=== PATIENT | female | born 1930 | race Caucasian/White ===

== ENCOUNTER 2017-08-16 10:32 | Inpatient (IN) | payer MEDICARE, OTHER ==
[~2017-08-16] VITALS: Ht 167.6 cm; Wt 99.3 kg
[~2017-08-16 10:32] MED LIST: ALLO100T30 PO; AMLO10TA2 PO; AZIT250T PO; CEFD300C37 PO; ESCI5TAB PO; FURO40TA6 PO; ISOS10TA6 PO; LEVO100T5 PO; LOVA20TA2 PO; OMEP-110 PO; POTA25TA4 PO; RIVA20TA PO; SOTA80TA PO
[2017-08-16] MEDS ORDERED: MORPHINE SULFATE 4 MG/ML, 1ML ONE (11:17)
[2017-08-16] MEDS ORDERED: METOCLOPRAMIDE 5 MG/ML, 2ML ONE (11:17)
[2017-08-16] MEDS ORDERED: SODIUM CHLORIDE FLUSH 10ML SYR IVF ONE (11:30)
[2017-08-16] MEDS ORDERED: METOCLOPRAMIDE 5 MG/ML, 2ML IVPush ONE (11:30)
[2017-08-16] MEDS ORDERED: MORPHINE SULFATE 4 MG/ML, 1ML IVPush PRN (11:30)
[2017-08-16] MEDS ORDERED: SODIUM CHLORIDE 0.9% 1,000ML IVBOLUS ONE (11:30)
[2017-08-16 11:52] LABS: MEAN CORPUSCULAR HEMOGLOBIN 27.6 pg (27.0-34.8); MEAN CORPUSCULAR HGB CONC 32.1 g/dL (32.4-35.8); MEAN CORPUSCULAR VOLUME 86.1 fL (80-100); MEAN PLATELET VOLUME 8.7 fL (7.4-10.4); PLATELET COUNT 237 x10^3/uL (130-400); RED BLOOD COUNT 4.21 x10^6/uL (3.82-5.3)
[2017-08-16 12:00] LABS: ALBUMIN 3.6 g/dL (3.4-5.0); ANION GAP 6 mmol/L (5-15); CALCIUM 9.1 mg/dL (8.5-10.1); CHLORIDE 111 mmol/L (98-107)
[2017-08-16 12:03] LABS: ALANINE AMINOTRANSFERASE 66 U/L (12-78); ALKALINE PHOSPHATASE 116 U/L (45-117); BILIRUBIN,TOTAL 1.5 mg/dL (0.2-1.0); CREATININE 1.11 mg/dL (0.55-1.02); TOTAL PROTEIN 7.1 g/dL (6.4-8.2)
[2017-08-16 12:06] LABS: MD YES
[2017-08-16 12:07] LABS: BAND#(MANUAL) 0.17 x10^3/uL; BANDS%(MANUAL) 1 % (0-7); LYMPHS% (MANUAL) 9 % (22-44); MONOS% (MANUAL) 6 % (2-9); SEG#(MANUAL) 14.03 x10^3/uL (1.8-6.8); SEGS% (MANUAL) 84 % (42-75)
[2017-08-16 12:08] LABS: <PLATELET ESTIMATE> ADEQUATE; <PLT MORPHOLOGY> NORMAL PLT MORPH; <RBC MORPHOLOGY> NORMAL
[2017-08-16] MEDS ORDERED: OMNIPAQUE 350 MG/ML, 100ML BOTTLE ONE (12:44)
[2017-08-16] MEDS ORDERED: morphine SULFATE 10 MG/ML, 1ML IVPush PRN (14:00)
[2017-08-16] MEDS ORDERED: ONDANSETRON 2MG/ML, 2ML IVPush PRN (14:00)
[2017-08-16] MEDS ORDERED: hydrALAzine 20 MG/ML, 1ML IVPush PRN (14:00)
[2017-08-16] MEDS ORDERED: POLYETHYLENE GLYCOL 17 GM PACKET PO PRN (14:00)
[2017-08-16] MEDS ORDERED: BISACODYL 10 MG SUPP PR PRN (14:00)
[2017-08-16] MEDS ORDERED: DOCUSATE 100 MG CAPSULE PO PRN (14:00)
[2017-08-16 16:17] VITALS: BP 129/67
[2017-08-16] MEDS: DOXYCYCLINE 100 MG in DEXTROSE 5% 250 ML IV SCH (16:42)
[2017-08-16] MEDS: CEFTRIAXONE PMX 1GM/50ML 50 ML IV SCH (17:51)
[2017-08-16 18:44] VITALS: BP 124/64
[2017-08-16] MEDS: POTASSIUM CHLORIDE 20 MEQ in LACTATED RINGERS 1,000 ML IV SCH (20:55)
[2017-08-16] MEDS ORDERED: K-LYTE 25 MEQ TABLET.EFF PO SCH (21:00)
[2017-08-16] MEDS ORDERED: RIVAROXABAN 20 MG TABLET PO SCH (21:00)
[2017-08-16] MEDS ORDERED: LOVASTATIN 20 MG TABLET PO SCH (21:00)
[2017-08-16] MEDS ORDERED: SOTALOL 80MG TABLET PO SCH (21:00)
[2017-08-16 21:05] VITALS: BP 129/65
[2017-08-16 21:22] LABS: MICROSCOPIC NOT IND
[2017-08-16 21:28] LABS: CULTURE INDICATED? NO
[2017-08-16] MEDS: METOPROLOL TARTRATE 25 MG TABLET PO SCH (21:52)
[2017-08-17 01:25] VITALS: BP 111/59
[2017-08-17] MEDS: DOXYCYCLINE 100 MG in DEXTROSE 5% 250 ML IV SCH ×2 (04:52→17:58)
[2017-08-17 05:29] LABS: CHLORIDE 110 mmol/L (98-107)
[2017-08-17 05:30] LABS: BASOPHILS # (AUTO) 0.01 x10^3/uL (0-0.1); BASOPHILS % (AUTO) 0 % (0-1); EOSINOPHILS # (AUTO) 0.03 x10^3/uL (0-0.4); EOSINOPHILS % (AUTO) 0 % (1-7); LYMPHOCYTES # (AUTO) 1.55 x10^3/uL (1-3.4); LYMPHOCYTES % (AUTO) 13 % (22-44); MD NO; MEAN CORPUSCULAR HEMOGLOBIN 27.6 pg (27.0-34.8); MEAN CORPUSCULAR HGB CONC 31.6 g/dL (32.4-35.8); MEAN CORPUSCULAR VOLUME 87.3 fL (80-100); MONOCYTES % (AUTO) 9 % (2-9); NEUTROPHILS # (AUTO) 9.45 x10^3/uL (1.8-6.8); NEUTROPHILS % (AUTO) 78 % (42-75); PLATELET COUNT 216 x10^3/uL (130-400); RED BLOOD COUNT 4.32 x10^6/uL (3.82-5.3); RED CELL DISTRIBUTION WIDTH 15.7 % (9.6-15.2)
[2017-08-17 05:46] LABS: ALANINE AMINOTRANSFERASE 167 U/L (12-78); ALBUMIN 3.2 g/dL (3.4-5.0); ALKALINE PHOSPHATASE 142 U/L (45-117); ANION GAP 5 mmol/L (5-15); BILIRUBIN,TOTAL 4.9 mg/dL (0.2-1.0); CALCIUM 8.8 mg/dL (8.5-10.1); CHOL/HDL RATIO 1.9; CHOLESTEROL, TOTAL 97 mg/dL (140-239); HDL CHOL % 53 % (28-40); HDL CHOLESTEROL (DIRECT) 51 mg/dL (40-60); LDL CHOLESTEROL,CALCULATED 30 mg/dL (54-169); LDL/HDL RATIO 0.6 (0.5-3.0); TOTAL PROTEIN 6.8 g/dL (6.4-8.2); TRIGLYCERIDES 79 mg/dL (50-200); VLDL CHOLESTEROL 16 mg/dL (0-25)
[2017-08-17 06:04] VITALS: BP 129/58
[2017-08-17] MEDS ORDERED: PARO10TA56 PO (07:54)
[2017-08-17] MEDS ORDERED: PSYL3.4P5 PO (07:54)
[2017-08-17] MEDS ORDERED: POTA10CA PO (07:54)
[2017-08-17] MEDS ORDERED: APIX5TAB PO (07:54)
[2017-08-17] MEDS ORDERED: CALC-116 PO (07:54)
[2017-08-17] MEDS ORDERED: METO25TA35 PO (07:54)
[2017-08-17] MEDS ORDERED: DOFE500C PO (07:54)
[2017-08-17] MEDS ORDERED: ISOS20TA3 PO (07:54)
[2017-08-17] MEDS ORDERED: AMLO-284 PO (07:54)
[2017-08-17] MEDS ORDERED: MAGN500T PO (07:54)
[2017-08-17] MEDS ORDERED: ALLO100T30 PO (07:54)
[2017-08-17] MEDS ORDERED: ASCO500T12 PO (07:54)
[2017-08-17] MEDS ORDERED: LOVA40TA2 PO (07:54)
[2017-08-17 07:57] VITALS: BP 136/63
[2017-08-17] MEDS: LEVOTHYROXINE 100 MCG TABLET PO SCH (08:38)
[2017-08-17] MEDS: FUROSEMIDE 40 MG TABLET PO SCH (08:39)
[2017-08-17] MEDS: ALLOPURINOL 100 MG TABLET PO SCH (08:39)
[2017-08-17] MEDS: METOPROLOL TARTRATE 25 MG TABLET PO SCH ×2 (08:43→21:19)
[2017-08-17] MEDS ORDERED: AMLODIPINE 5 MG TABLET PO SCH (09:00)
[2017-08-17] MEDS ORDERED: CITALOPRAM 10 MG TABLET PO SCH (09:00)
[2017-08-17] MEDS ORDERED: ISOSORBIDE MONONITRATE 20 MG TABLET PO SCH (09:00)
[2017-08-17] MEDS: AMLODIPINE 5 MG TABLET PO SCH ×2 (09:30→21:20)
[2017-08-17] MEDS ORDERED: DOFETILIDE PO SCH (09:30)
[2017-08-17] MEDS: ISOSORBIDE MONONITRATE 20 MG TABLET PO SCH ×2 (09:30→21:19)
[2017-08-17 09:49] LABS: ALANINE AMINOTRANSFERASE 158 U/L (12-78); ANION GAP 6 mmol/L (5-15); CHLORIDE 110 mmol/L (98-107); CREATININE 0.97 mg/dL (0.55-1.02)
[2017-08-17 09:51] LABS: ALKALINE PHOSPHATASE 141 U/L (45-117); BILIRUBIN,TOTAL 5.2 mg/dL (0.2-1.0); TOTAL PROTEIN 6.4 g/dL (6.4-8.2)
[2017-08-17] MEDS ORDERED: [UNRECOGNIZED DRUG - REMARK] MC SCH (10:00)
[2017-08-17] MEDS: POTASSIUM CHLORIDE 20 MEQ in LACTATED RINGERS 1,000 ML IV SCH ×2 (10:26→23:23)
[2017-08-17] MEDS: POTASSIUM CHLORIDE 10 MEQ TABLET.ER PO SCH ×2 (10:26→21:19)
[2017-08-17] MEDS: APIXABAN 5 MG TABLET PO SCH ×2 (10:26→21:20)
[2017-08-17] MEDS: PAROXETINE 10 MG TABLET PO SCH (10:26)
[2017-08-17 13:02] LABS: BILIRUBIN, DIRECT 2.7 mg/dL (0.1-0.2)
[2017-08-17 13:06] LABS: BILIRUBIN,INDIRECT 2.5 mg/dL (0.0-2.0); BILIRUBIN,TOTAL 5.2 mg/dL (0.2-1.0)
[2017-08-17 16:00] VITALS: BP 139/81
[2017-08-17] MEDS: CEFTRIAXONE PMX 1GM/50ML 50 ML IV SCH (19:07)
[2017-08-17 19:44] VITALS: BP 141/75
[2017-08-17] MEDS ORDERED: VALSARTAN 160 MG TABLET PO SCH (21:00)
[2017-08-17] MEDS: DOFETILIDE HOMEMEDPO SCH (21:20)
[2017-08-18 02:30] VITALS: BP 137/73
[2017-08-18 04:43] LABS: BASOPHILS # (AUTO) 0.06 x10^3/uL (0-0.1); BASOPHILS % (AUTO) 1 % (0-1); EOSINOPHILS # (AUTO) 0.13 x10^3/uL (0-0.4); EOSINOPHILS % (AUTO) 2 % (1-7); LYMPHOCYTES # (AUTO) 1.37 x10^3/uL (1-3.4); LYMPHOCYTES % (AUTO) 15 % (22-44); MD NO; MEAN CORPUSCULAR HEMOGLOBIN 28.1 pg (27.0-34.8); MEAN CORPUSCULAR HGB CONC 32.5 g/dL (32.4-35.8); MEAN CORPUSCULAR VOLUME 86.3 fL (80-100); MEAN PLATELET VOLUME 8.7 fL (7.4-10.4); MONOCYTES # (AUTO) 1.07 x10^3/uL (0.2-0.8); MONOCYTES % (AUTO) 12 % (2-9); NEUTROPHILS # (AUTO) 6.23 x10^3/uL (1.8-6.8); NEUTROPHILS % (AUTO) 70 % (42-75); PLATELET COUNT 190 x10^3/uL (130-400); RED BLOOD COUNT 3.81 x10^6/uL (3.82-5.3); RED CELL DISTRIBUTION WIDTH 16.2 % (9.6-15.2)
[2017-08-18 04:51] LABS: ALANINE AMINOTRANSFERASE 115 U/L (12-78); ALBUMIN 2.8 g/dL (3.4-5.0); ANION GAP 4 mmol/L (5-15); CALCIUM 8.8 mg/dL (8.5-10.1); CHLORIDE 110 mmol/L (98-107); CREATININE 1.03 mg/dL (0.55-1.02)
[2017-08-18 04:53] LABS: ALKALINE PHOSPHATASE 130 U/L (45-117); BILIRUBIN,TOTAL 4.2 mg/dL (0.2-1.0); TOTAL PROTEIN 6.2 g/dL (6.4-8.2)
[2017-08-18] MEDS: DOXYCYCLINE 100 MG in DEXTROSE 5% 250 ML IV SCH ×2 (05:05→16:33)
[2017-08-18 07:10] VITALS: BP 142/81
[2017-08-18] MEDS: PSYLLIUM PACKET PO SCH (09:18)
[2017-08-18] MEDS: DOFETILIDE HOMEMEDPO SCH ×3 (09:18→22:31)
[2017-08-18] MEDS: MAGNESIUM OXIDE 400 MG TABLET PO SCH (09:26)
[2017-08-18] MEDS: ASCORBIC ACID 500 MG TABLET PO SCH (09:26)
[2017-08-18] MEDS: CALCIUM/VITAMIN D3 250-125 TABLET PO SCH (09:26)
[2017-08-18] MEDS: LEVOTHYROXINE 100 MCG TABLET PO SCH (09:31)
[2017-08-18] MEDS: ISOSORBIDE MONONITRATE 20 MG TABLET PO SCH ×2 (09:31→22:26)
[2017-08-18] MEDS: POTASSIUM CHLORIDE 10 MEQ TABLET.ER PO SCH ×2 (09:31→22:26)
[2017-08-18] MEDS: ALLOPURINOL 100 MG TABLET PO SCH (09:32)
[2017-08-18] MEDS: METOPROLOL TARTRATE 25 MG TABLET PO SCH ×2 (09:32→22:27)
[2017-08-18] MEDS: FUROSEMIDE 40 MG TABLET PO SCH (09:32)
[2017-08-18] MEDS: PAROXETINE 10 MG TABLET PO SCH (09:32)
[2017-08-18] MEDS: POTASSIUM CHLORIDE 20 MEQ in LACTATED RINGERS 1,000 ML IV SCH (12:13)
[2017-08-18 13:53] VITALS: BP 128/82
[2017-08-18] MEDS: CEFTRIAXONE PMX 1GM/50ML 50 ML IV SCH (17:42)
[2017-08-18 20:00] VITALS: BP 149/79
[2017-08-18 22:14] VITALS: BP 146/87
[2017-08-18] MEDS: POTASSIUM CHLORIDE IV SCH (22:27)
[2017-08-18] MEDS: LACTATED RINGERS IV SCH (22:27)
[2017-08-18] MEDS: AMLODIPINE 5 MG TABLET PO SCH (22:27)
[2017-08-18] MEDS: VALSARTAN 160 MG TABLET PO SCH (22:28)
[2017-08-19 01:50] VITALS: BP 141/71
[2017-08-19] MEDS: POTASSIUM CHLORIDE IV SCH ×3 (03:17→22:38)
[2017-08-19] MEDS: LACTATED RINGERS IV SCH ×3 (03:17→22:38)
[2017-08-19] MEDS: DOXYCYCLINE 100 MG in DEXTROSE 5% 250 ML IV SCH ×2 (04:42→17:26)
[2017-08-19 04:55] LABS: BASOPHILS # (AUTO) 0.05 x10^3/uL (0-0.1); BASOPHILS % (AUTO) 1 % (0-1); EOSINOPHILS # (AUTO) 0.22 x10^3/uL (0-0.4); EOSINOPHILS % (AUTO) 2 % (1-7); LYMPHOCYTES # (AUTO) 1.48 x10^3/uL (1-3.4); LYMPHOCYTES % (AUTO) 16 % (22-44); MD NO; MEAN CORPUSCULAR HEMOGLOBIN 28.6 pg (27.0-34.8); MEAN CORPUSCULAR HGB CONC 32.8 g/dL (32.4-35.8); MEAN PLATELET VOLUME 8.8 fL (7.4-10.4); MONOCYTES # (AUTO) 1.14 x10^3/uL (0.2-0.8); MONOCYTES % (AUTO) 12 % (2-9); NEUTROPHILS % (AUTO) 69 % (42-75); PLATELET COUNT 199 x10^3/uL (130-400); RED BLOOD COUNT 3.99 x10^6/uL (3.82-5.3); RED CELL DISTRIBUTION WIDTH 15.6 % (9.6-15.2)
[2017-08-19 05:08] LABS: ALBUMIN 2.9 g/dL (3.4-5.0); ANION GAP 8 mmol/L (5-15); CALCIUM 9.4 mg/dL (8.5-10.1); CHLORIDE 110 mmol/L (98-107)
[2017-08-19 05:13] LABS: ALANINE AMINOTRANSFERASE 88 U/L (12-78); ALKALINE PHOSPHATASE 135 U/L (45-117); BILIRUBIN,TOTAL 2.7 mg/dL (0.2-1.0); CREATININE 0.89 mg/dL (0.55-1.02); TOTAL PROTEIN 6.8 g/dL (6.4-8.2)
[2017-08-19] MEDS: LEVOTHYROXINE 100 MCG TABLET PO SCH (05:56)
[2017-08-19 08:00] VITALS: BP 138/87
[2017-08-19] MEDS: METOPROLOL TARTRATE 25 MG TABLET PO SCH ×2 (08:48→20:00)
[2017-08-19] MEDS: ISOSORBIDE MONONITRATE 20 MG TABLET PO SCH ×2 (09:00→19:59)
[2017-08-19] MEDS: CALCIUM/VITAMIN D3 250-125 TABLET PO SCH (09:00)
[2017-08-19] MEDS: PAROXETINE 10 MG TABLET PO SCH (09:00)
[2017-08-19] MEDS: DOFETILIDE HOMEMEDPO SCH ×2 (09:00→20:04)
[2017-08-19] MEDS: ASCORBIC ACID 500 MG TABLET PO SCH (09:00)
[2017-08-19] MEDS: POTASSIUM CHLORIDE 10 MEQ TABLET.ER PO SCH ×2 (09:00→20:04)
[2017-08-19] MEDS: FUROSEMIDE 40 MG TABLET PO SCH (09:00)
[2017-08-19] MEDS: MAGNESIUM OXIDE 400 MG TABLET PO SCH (09:00)
[2017-08-19] MEDS: ALLOPURINOL 100 MG TABLET PO SCH (09:00)
[2017-08-19] MEDS: PSYLLIUM PACKET PO SCH (09:00)
[2017-08-19] MEDS ORDERED: FENTANYL PF 100 MCG/2ML ONE ×2 (11:47→11:54)
[2017-08-19] MEDS ORDERED: SUCCINYLCHOLINE 20 MG/ML, 10ML ONE (11:48)
[2017-08-19] MEDS ORDERED: PROPOFOL 10 MG/ML, 20ML ONE (11:48)
[2017-08-19] MEDS ORDERED: PHENYLEPHRINE 10 MG/ML ONE (11:48)
[2017-08-19] MEDS ORDERED: DEXAMETHASONE 4 MG/ML, 1ML ONE (12:14)
[2017-08-19] MEDS ORDERED: ONDANSETRON 2MG/ML, 2ML ONE (12:14)
[2017-08-19] MEDS ORDERED: FENTANYL PF 100 MCG/2ML IV PRN (12:30)
[2017-08-19] MEDS ORDERED: PROMETHAZINE 25 MG/ML, 1ML IV PRN (12:30)
[2017-08-19] MEDS ORDERED: morphine SULFATE 10 MG/ML, 1ML IV PRN (12:30)
[2017-08-19] MEDS ORDERED: OMNIPAQUE 350 MG/ML, 50 ML BOTTLE ONE (13:07)
[2017-08-19 13:26] VITALS: BP 141/78
[2017-08-19] MEDS: CEFTRIAXONE PMX 1GM/50ML 50 ML IV SCH (18:39)
[2017-08-19 19:03] VITALS: BP 146/75
[2017-08-19 20:00] VITALS: BP 128/87
[2017-08-19] MEDS: AMLODIPINE 5 MG TABLET PO SCH (20:00)
[2017-08-19] MEDS: VALSARTAN 160 MG TABLET PO SCH (20:00)
[2017-08-19] MEDS ORDERED: AMLODIPINE 5 MG TABLET PO SCH (21:00)
[2017-08-20 03:39] VITALS: BP 152/96
[2017-08-20 04:17] VITALS: BP 143/91
[2017-08-20 04:59] LABS: BASOPHILS # (AUTO) 0.04 x10^3/uL (0-0.1); BASOPHILS % (AUTO) 0 % (0-1); EOSINOPHILS # (AUTO) 0.13 x10^3/uL (0-0.4); EOSINOPHILS % (AUTO) 2 % (1-7); LYMPHOCYTES # (AUTO) 1.31 x10^3/uL (1-3.4); LYMPHOCYTES % (AUTO) 17 % (22-44); MD NO; MEAN CORPUSCULAR VOLUME 87.5 fL (80-100); MEAN PLATELET VOLUME 9.1 fL (7.4-10.4); MONOCYTES # (AUTO) 0.92 x10^3/uL (0.2-0.8); MONOCYTES % (AUTO) 12 % (2-9); NEUTROPHILS # (AUTO) 5.54 x10^3/uL (1.8-6.8); NEUTROPHILS % (AUTO) 70 % (42-75); PLATELET COUNT 213 x10^3/uL (130-400); RED BLOOD COUNT 3.84 x10^6/uL (3.82-5.3); RED CELL DISTRIBUTION WIDTH 15.8 % (9.6-15.2)
[2017-08-20 05:09] LABS: ALBUMIN 2.8 g/dL (3.4-5.0); ANION GAP 6 mmol/L (5-15); CALCIUM 9.1 mg/dL (8.5-10.1); CHLORIDE 110 mmol/L (98-107)
[2017-08-20 05:14] LABS: ALANINE AMINOTRANSFERASE 66 U/L (12-78); ALKALINE PHOSPHATASE 121 U/L (45-117); BILIRUBIN,TOTAL 1.2 mg/dL (0.2-1.0); TOTAL PROTEIN 6.4 g/dL (6.4-8.2)
[2017-08-20] MEDS: LEVOTHYROXINE 100 MCG TABLET PO SCH (05:19)
[2017-08-20] MEDS: DOXYCYCLINE 100 MG in DEXTROSE 5% 250 ML IV SCH ×2 (05:19→22:15)
[2017-08-20] MEDS: POTASSIUM CHLORIDE IV SCH ×3 (05:20→21:35)
[2017-08-20] MEDS: LACTATED RINGERS IV SCH ×3 (05:20→21:35)
[2017-08-20 07:45] VITALS: BP 121/80
[2017-08-20] MEDS: PSYLLIUM PACKET PO SCH (09:00)
[2017-08-20] MEDS: ASCORBIC ACID 500 MG TABLET PO SCH (09:00)
[2017-08-20] MEDS: FUROSEMIDE 40 MG TABLET PO SCH (09:00)
[2017-08-20] MEDS: POTASSIUM CHLORIDE 10 MEQ TABLET.ER PO SCH ×2 (09:00→20:22)
[2017-08-20] MEDS: MAGNESIUM OXIDE 400 MG TABLET PO SCH (09:00)
[2017-08-20] MEDS: ALLOPURINOL 100 MG TABLET PO SCH (09:00)
[2017-08-20] MEDS: PAROXETINE 10 MG TABLET PO SCH (09:00)
[2017-08-20] MEDS: ISOSORBIDE MONONITRATE 20 MG TABLET PO SCH ×2 (09:00→20:22)
[2017-08-20] MEDS: CALCIUM/VITAMIN D3 250-125 TABLET PO SCH (09:00)
[2017-08-20] MEDS: DOFETILIDE HOMEMEDPO SCH ×2 (09:00→20:23)
[2017-08-20] MEDS: METOPROLOL TARTRATE 25 MG TABLET PO SCH ×2 (09:50→20:22)
[2017-08-20] MEDS ORDERED: BUPIVACAINE/PF 0.5% ONE (10:45)
[2017-08-20] MEDS ORDERED: EPINEPHRINE 1 MG/ML, 1ML ONE (10:46)
[2017-08-20] MEDS ORDERED: FENTANYL PF 100 MCG/2ML ONE (12:09)
[2017-08-20 12:24] LABS: ANA SCREEN NEGATIVE (Negative)
[2017-08-20] MEDS ORDERED: ONDANSETRON 2MG/ML, 2ML ONE (12:28)
[2017-08-20] MEDS ORDERED: PROPOFOL 10 MG/ML, 20ML ONE (12:28)
[2017-08-20] MEDS ORDERED: DEXAMETHASONE 4 MG/ML, 1ML ONE (12:28)
[2017-08-20] MEDS ORDERED: PROPOFOL 50 ML ONE (12:28)
[2017-08-20] MEDS ORDERED: BUPIVACAINE/PF-EPI 0.5% 1:200K IM ONE (12:52)
[2017-08-20] MEDS ORDERED: ONDANSETRON 2MG/ML, 2ML IVPush PRN (13:30)
[2017-08-20] MEDS ORDERED: PROMETHAZINE 25 MG/ML, 1ML IV PRN (13:30)
[2017-08-20] MEDS ORDERED: PROMETHAZINE 12.5 MG SUPP PR PRN (13:30)
[2017-08-20] MEDS ORDERED: FENTANYL PF 100 MCG/2ML IV PRN (13:30)
[2017-08-20] MEDS ORDERED: ACETAMINOPHEN 325 MG TABLET PO PRN (13:30)
[2017-08-20] MEDS ORDERED: MIDAZOLAM 1 MG/ML, 2ML IV PRN (13:30)
[2017-08-20] MEDS ORDERED: LORazepam 2 MG/ML, 1ML IVPush PRN (13:30)
[2017-08-20] MEDS ORDERED: ACETAMINOPHEN 650 MG/20.3 ML UDC ONE (14:04)
[2017-08-20] MEDS ORDERED: ACETAMINOPHEN 325 MG TABLET ONE (14:04)
[2017-08-20] MEDS ORDERED: MORPHINE SULFATE 4 MG/ML, 1ML ONE (14:05)
[2017-08-20 14:49] VITALS: BP 154/90
[2017-08-20] MEDS ORDERED: CEFAZOLIN 1,000 MG ONE (15:09)
[2017-08-20] MEDS ORDERED: HYDROcodone/APAP 5/325 TABLET PO PRN (15:30)
[2017-08-20] MEDS: VALSARTAN 160 MG TABLET PO SCH (17:20)
[2017-08-20] MEDS: AMLODIPINE 5 MG TABLET PO SCH (17:20)
[2017-08-20] MEDS: CEFTRIAXONE PMX 1GM/50ML 50 ML IV SCH (18:24)
[2017-08-20 19:12] VITALS: BP 155/92
[2017-08-20] MEDS ORDERED: ACETAMINOPHEN 325 MG TABLET PO ONE (22:30)
[2017-08-21 00:02] VITALS: BP 116/70
[2017-08-21 03:59] VITALS: BP 121/87
[2017-08-21] MEDS: POTASSIUM CHLORIDE IV SCH ×2 (04:35→09:22)
[2017-08-21] MEDS: LACTATED RINGERS IV SCH ×2 (04:35→09:22)
[2017-08-21 04:57] LABS: BASOPHILS # (AUTO) 0.02 x10^3/uL (0-0.1); BASOPHILS % (AUTO) 0 % (0-1); EOSINOPHILS % (AUTO) 0 % (1-7); LYMPHOCYTES # (AUTO) 0.81 x10^3/uL (1-3.4); LYMPHOCYTES % (AUTO) 8 % (22-44); MD NO; MEAN CORPUSCULAR HEMOGLOBIN 28.3 pg (27.0-34.8); MEAN CORPUSCULAR HGB CONC 32.5 g/dL (32.4-35.8); MEAN CORPUSCULAR VOLUME 87.2 fL (80-100); MEAN PLATELET VOLUME 8.9 fL (7.4-10.4); MONOCYTES # (AUTO) 0.72 x10^3/uL (0.2-0.8); MONOCYTES % (AUTO) 7 % (2-9); NEUTROPHILS % (AUTO) 84 % (42-75); PLATELET COUNT 240 x10^3/uL (130-400); RED BLOOD COUNT 3.87 x10^6/uL (3.82-5.3); RED CELL DISTRIBUTION WIDTH 15.5 % (9.6-15.2)
[2017-08-21 05:01] LABS: ALBUMIN 2.8 g/dL (3.4-5.0); ANION GAP 7 mmol/L (5-15); CALCIUM 9.6 mg/dL (8.5-10.1); CHLORIDE 110 mmol/L (98-107)
[2017-08-21 05:04] LABS: ALANINE AMINOTRANSFERASE 58 U/L (12-78); ALKALINE PHOSPHATASE 121 U/L (45-117); CREATININE 0.82 mg/dL (0.55-1.02); TOTAL PROTEIN 6.5 g/dL (6.4-8.2)
[2017-08-21] MEDS: LEVOTHYROXINE 100 MCG TABLET PO SCH (06:13)
[2017-08-21 07:33] VITALS: BP 147/87
[2017-08-21] MEDS ORDERED: APIXABAN 5 MG TABLET PO SCH (09:00)
[2017-08-21] MEDS: MAGNESIUM OXIDE 400 MG TABLET PO SCH (09:21)
[2017-08-21] MEDS: ALLOPURINOL 100 MG TABLET PO SCH (09:21)
[2017-08-21] MEDS: ASCORBIC ACID 500 MG TABLET PO SCH (09:21)
[2017-08-21] MEDS: ISOSORBIDE MONONITRATE 20 MG TABLET PO SCH (09:22)
[2017-08-21] MEDS: METOPROLOL TARTRATE 25 MG TABLET PO SCH (09:22)
[2017-08-21] MEDS: FUROSEMIDE 40 MG TABLET PO SCH (09:22)
[2017-08-21] MEDS: CALCIUM/VITAMIN D3 250-125 TABLET PO SCH (09:22)
[2017-08-21] MEDS: POTASSIUM CHLORIDE 10 MEQ TABLET.ER PO SCH (09:22)
[2017-08-21] MEDS: PAROXETINE 10 MG TABLET PO SCH (09:22)
[2017-08-21] MEDS: PSYLLIUM PACKET PO SCH (09:25)
[2017-08-21] MEDS: DOFETILIDE HOMEMEDPO SCH (09:25)
[2017-08-21] MEDS: DOXYCYCLINE 100 MG in DEXTROSE 5% 250 ML IV SCH (10:21)
[2017-08-21 13:57] VITALS: BP 137/87
== END 2017-08-21 15:15 | disposition home or self-care (01) | DRG 853 ==
LOC: ED 12:51 → EDIP 12:52 → ED 13:00 → 3NE 15:08
PROVIDERS: ADMIT Internal Medicine; ATTEND Internal Medicine
PROC: 0F798ZZ Dilation of Common Bile Duct, Via Natural or Artificial Opening Endoscopic (ICD-10-PCS; 2017-08-19)
PROC: BF131ZZ Fluoroscopy of Gallbladder and Bile Ducts using Low Osmolar Contrast (ICD-10-PCS; 2017-08-19)
PROC: 0FT44ZZ Resection of Gallbladder, Percutaneous Endoscopic Approach (ICD-10-PCS; principal; 2017-08-20 12:30)
DX: A41.9 Sepsis, unspecified organism (principal); K85.10 Biliary acute pancreatitis without necrosis or infection; K80.01 Calculus of gallbladder with acute cholecystitis with obstruction; D68.69 Other thrombophilia; I48.91 Unspecified atrial fibrillation; J20.9 Acute bronchitis, unspecified; Z88.8 Allergy status to other drugs, medicaments and biological substances; Z95.0 Presence of cardiac pacemaker; Z98.42 Cataract extraction status, left eye; Z98.41 Cataract extraction status, right eye; Z83.3 Family history of diabetes mellitus; Z82.49 Family history of ischemic heart disease and other diseases of the circulatory system; Z80.9 Family history of malignant neoplasm, unspecified; D64.9 Anemia, unspecified; E78.5 Hyperlipidemia, unspecified; I11.9 Hypertensive heart disease without heart failure; Z79.01 Long term (current) use of anticoagulants; Z90.710 Acquired absence of both cervix and uterus
CPT/HCPCS: 36415; 71045; 74177; 74328; 76700; 80053; 80061; 81003; 82247; 82248; 82784; 82787; 83605; 83690; 83735; 84443; 85025; 86038; 86705; 86706; 86709; 86803; 87340; 88304; 93005; 96361; 96374; 96375; 97161; J0171; J0690; J0696; J1100; J2405; J2704; J3010; J3480; J3490; J7060; J7120; Q9967; C1769; J0330; J2270; J2370; J2765; J7030

== ENCOUNTER 2018-08-30 17:41 | Emergency (ER) | payer MEDICARE ==
[~2018-08-30] VITALS: Ht 165.1 cm; Wt 93.0 kg
[~2018-08-30 17:41] MED LIST changes: +AMLO-284 PO; -AMLO10TA2 PO; +AMLO10TA8 PO; +APIX5TAB PO; +ASCO500T12 PO; +CALC-116 PO; +DOFE500C PO; +ISOS20TA3 PO; +LOVA40TA2 PO; +MAGN500T PO; +METO25TA35 PO; +OLME20TA17 PO; +PARO10TA56 PO; +POTA10CA PO; +PSYL3.4P5 PO
[2018-08-30] MEDS ORDERED: SODIUM CHLORIDE FLUSH 10ML SYR IVF ONE (18:30)
[2018-08-30 18:50] LABS: BASOPHILS # (AUTO) 0.06 x10^3/uL (0-0.1); BASOPHILS % (AUTO) 1 % (0-1); EOSINOPHILS # (AUTO) 0.09 x10^3/uL (0-0.4); EOSINOPHILS % (AUTO) 1 % (1-7); LYMPHOCYTES # (AUTO) 2.66 x10^3/uL (1-3.4); LYMPHOCYTES % (AUTO) 25 % (22-44); MD NO; MEAN CORPUSCULAR HEMOGLOBIN 27.2 pg (27.0-34.8); MEAN CORPUSCULAR HGB CONC 32.6 g/dL (32.4-35.8); MEAN CORPUSCULAR VOLUME 83.6 fL (80-100); MEAN PLATELET VOLUME 8.7 fL (7.4-10.4); MONOCYTES # (AUTO) 0.87 x10^3/uL (0.2-0.8); MONOCYTES % (AUTO) 8 % (2-9); NEUTROPHILS # (AUTO) 6.94 x10^3/uL (1.8-6.8); NEUTROPHILS % (AUTO) 65 % (42-75); PLATELET COUNT 319 x10^3/uL (130-400); RED BLOOD COUNT 5.23 x10^6/uL (3.82-5.3); RED CELL DISTRIBUTION WIDTH 15.9 % (9.6-15.2)
[2018-08-30 18:59] LABS: ALBUMIN 3.8 g/dL (3.4-5.0); ANION GAP 7 mmol/L (5-15); CALCIUM 9.9 mg/dL (8.5-10.1); CHLORIDE 108 mmol/L (98-107); CREATININE 1.27 mg/dL (0.55-1.02)
[2018-08-30] MEDS ORDERED: PROPOFOL 10 MG/ML, 20ML IVPush ONE (19:00)
--- NOTE | 2018-08-30 19:00 | NUR ---
PT MOVED TO ROOM T2 FOR CV
--- NOTE | 2018-08-30 19:00 | NUR ---
HX AFIB W A PACER HAS HAD PRIOR CV AND IS NOW BACK IN AFIB PT FEELS WEEK AND SOB DENIES ANY CP REQUESTING CV DR LORA TO THE BS
[2018-08-30 19:03] LABS: TROPONIN I < 0.015 ng/mL (0.000-0.045)
--- NOTE | 2018-08-30 19:06 | NUR ---
REPORT TO BRANDON
[2018-08-30 19:09] LABS: THYROID STIMULATING HORMONE 0.552 mIU/L (0.358-3.740)
[2018-08-30] MEDS ORDERED: PROPOFOL 10 MG/ML, 20ML ONE (19:12)
[2018-08-30] MEDS ORDERED: ONDANSETRON 2MG/ML, 2ML ONE (19:12)
--- NOTE | 2018-08-30 19:28 | NUR ---
CARDIOVERSION STARTED. SHOCKED ONCE WITH 200 JOULES. PATIENT SEDATED.
[2018-08-30] MEDS ORDERED: ONDANSETRON 2MG/ML, 2ML IVPush ONE (19:30)
--- NOTE | 2018-08-30 19:46 | NUR ---
CARDIOVERSION DONE. REPORT GIVEN TO ILIR ALONZO.
--- NOTE | 2018-08-30 20:04 | NUR ---
patient awake and alert,still feeling dizzy. will continue to monitor. states she's feels much better.
[2018-08-30 21:02] VITALS: BP 118/64
--- NOTE | 2018-08-30 21:02 | NUR ---
patient alert and oriented. VSS. patient's heart rate 60 paced rhythm. discharged with instruction. verbalized understanding.
== END 2018-08-30 21:05 | disposition home or self-care (01) ==
LOC: ED 18:08
DX: I48.2 Chronic atrial fibrillation (principal); I48.91 Unspecified atrial fibrillation; I10 Essential (primary) hypertension; Z90.710 Acquired absence of both cervix and uterus; Z95.0 Presence of cardiac pacemaker
CPT/HCPCS: 36415; 80048; 82040; 83735; 84443; 84484; 85025; 92960; 93005; 96374; 99152; 99285; J2405; J2704

== ENCOUNTER 2018-09-24 13:26 | Emergency (ER) | payer MEDICARE ==
[~2018-09-24] VITALS: Ht 165.1 cm; Wt 93.0 kg
--- NOTE | 2018-09-24 13:56 | NUR ---
BERNARD RN: PT PRESENTING TO ER FOR SUDDEN ONSET OF SLURRED SPEECH AND RIGHT SIDE FACIAL DROOP @ ~1300, FRIEND AT BEDSIDE WITNESSED EPISODE AND STATES LASTED FOR ABOUT 5 MINUTES. NOW AT ER ALL SYMPTOMS ARE RESOLVED. CONNECTED TO ALL MONITORING, VSS. WONG TO BEDSIDE FOR ASSESSMENT. AWAITING FURTHER ORDERS AT THIS TIME. REPORT GIVEN TO SUSAN HAZEL
[2018-09-24] MEDS ORDERED: SODIUM CHLORIDE FLUSH 10ML SYR IVF ONE (14:00)
--- NOTE | 2018-09-24 14:07 | NUR ---
REPORT RECEIVED, CARE ASSUMED. NO NEURO DEFICITS AT THIS TIME. NOTED. IV STARTED, LABS DRAWN, U/S TECH AT BEDSIDE. NO NEEDPS EXPRESSED BY PT AT THIS TIME.
[2018-09-24 14:20] LABS: BASOPHILS # (AUTO) 0.07 x10^3/uL (0-0.1); BASOPHILS % (AUTO) 1 % (0-1); EOSINOPHILS # (AUTO) 0.09 x10^3/uL (0-0.4); EOSINOPHILS % (AUTO) 1 % (1-7); LYMPHOCYTES # (AUTO) 1.96 x10^3/uL (1-3.4); LYMPHOCYTES % (AUTO) 24 % (22-44); MD NO; MEAN CORPUSCULAR HEMOGLOBIN 26.5 pg (27.0-34.8); MEAN CORPUSCULAR HGB CONC 31.4 g/dL (32.4-35.8); MEAN CORPUSCULAR VOLUME 84.3 fL (80-100); MEAN PLATELET VOLUME 8.4 fL (7.4-10.4); MONOCYTES # (AUTO) 0.75 x10^3/uL (0.2-0.8); MONOCYTES % (AUTO) 9 % (2-9); NEUTROPHILS # (AUTO) 5.27 x10^3/uL (1.8-6.8); NEUTROPHILS % (AUTO) 65 % (42-75); PLATELET COUNT 281 x10^3/uL (130-400); RED BLOOD COUNT 4.84 x10^6/uL (3.82-5.3); RED CELL DISTRIBUTION WIDTH 15.9 % (9.6-15.2)
[2018-09-24 14:26] LABS: ALBUMIN 3.8 g/dL (3.4-5.0); ANION GAP 5 mmol/L (5-15); CALCIUM 9.2 mg/dL (8.5-10.1); CHLORIDE 109 mmol/L (98-107)
[2018-09-24 14:29] LABS: ALANINE AMINOTRANSFERASE 30 U/L (12-78); ALKALINE PHOSPHATASE 96 U/L (45-117); BILIRUBIN,TOTAL 0.9 mg/dL (0.2-1.0); CREATININE 1.24 mg/dL (0.55-1.02); TOTAL PROTEIN 7.4 g/dL (6.4-8.2)
--- NOTE | 2018-09-24 14:39 | NUR ---
PT SBA TO BSC, "I TOOK MY WATER PILL THIS AM" PT CONT PACED RHYTHM PER MONITOR, AUTO BP AND PULSE OX IN PLACE. PT UPDATED ON POC. NO OTHER NEEDS AT THIS TIME.
--- NOTE | 2018-09-24 15:18 | NUR ---
PT TO CT
--- NOTE | 2018-09-24 15:25 | NUR ---
PT RETURN TO ROOM, NO NEURO DEFICITS NOTED.
[2018-09-24] MEDS ORDERED: CYAN10005 PO (15:32)
[2018-09-24] MEDS ORDERED: LOVA10TA PO (15:32)
[2018-09-24 15:33] VITALS: BP 171/78
--- NOTE | 2018-09-24 16:20 | NUR ---
NO NEURO DEFICITS NOTED. IV DC'D WITH CANNULA INTACT, REVIEWED DC INSTRUCTIONS WITH PT, UNDERSTANDING VERBALIZED. PT LEFT AMB, GAIT STEADY.
== END 2018-09-24 16:32 | disposition home or self-care (01) ==
LOC: ED 16:26
DX: G45.9 Transient cerebral ischemic attack, unspecified (principal); I10 Essential (primary) hypertension; E11.9 Type 2 diabetes mellitus without complications; I48.91 Unspecified atrial fibrillation; Z90.89 Acquired absence of other organs; Z90.710 Acquired absence of both cervix and uterus; Z95.0 Presence of cardiac pacemaker
CPT/HCPCS: 36415; 70450; 71045; 80053; 85025; 93005; 93880; 99284

== ENCOUNTER → 2018-10-17 | Outpatient (CLI) | payer MEDICARE ==
[~2018-10-17] MED LIST changes: +CYAN10005 PO; +LOVA10TA PO
== END | disposition home or self-care (01) ==
LOC: CFH 10:59
PROVIDERS: ATTEND Nurse Practitioner Family
DX: M81.0 Age-related osteoporosis without current pathological fracture (principal)
CPT/HCPCS: 77080

== ENCOUNTER 2019-03-17 09:51 | Outpatient (CLI) | payer MEDICARE ==
[~2019-03-17 09:51] MED LIST changes: +APIX2.5T PO; +ASCO-254 PO; -ASCO500T12 PO; +AZIT500T10 PO; +B12; +CYAN-27 PO; -CYAN10005 PO; +DOFE125C PO; +GUAI600T31 PO; +LEVO100T PO; +MAGN400T50 PO; +METO50TA82 PO; +POLY17PO5 PO
[2019-03-17 13:47] LABS: CHLORIDE 110 mmol/L (98-107)
[2019-03-17 13:55] LABS: ANION GAP 6 mmol/L (5-15); CALCIUM 9.6 mg/dL (8.5-10.1)
== END 2019-03-17 23:59 | disposition home or self-care (01) ==
LOC: CFH 09:51
PROVIDERS: ATTEND Registered Nurse
DX: I48.91 Unspecified atrial fibrillation (principal); R60.9 Edema, unspecified
CPT/HCPCS: 36415; 80048

== ENCOUNTER 2019-03-20 08:18 | Day surgery (SDC) ==
[~2019-03-20] VITALS: Ht 165.1 cm; Wt 94.0 kg
[2019-03-20] MEDS ORDERED: SODIUM CHLORIDE 0.9% 500 ML IV PRN (09:06)
[2019-03-20 09:23] VITALS: BP 172/99
[2019-03-20] MEDS ORDERED: PROPOFOL 10 MG/ML, 20ML ONE (09:31)
[2019-03-20] MEDS ORDERED: OMEP-110 PO (09:38)
[2019-03-20] MEDS ORDERED: METO50TA82 PO (09:38)
[2019-03-20] MEDS ORDERED: POTA20TA6 PO (09:38)
== END 2019-03-20 12:59 | disposition home or self-care (01) ==
LOC: CACL 08:18
PROVIDERS: ATTEND Internal Medicine Cardiovascular Disease
DX: I48.91 Unspecified atrial fibrillation (principal); G47.30 Sleep apnea, unspecified; I10 Essential (primary) hypertension; E03.9 Hypothyroidism, unspecified; J44.9 Chronic obstructive pulmonary disease, unspecified; E88.81 Metabolic syndrome and other insulin resistance; F41.9 Anxiety disorder, unspecified; M10.9 Gout, unspecified; Z95.0 Presence of cardiac pacemaker; Z88.6 Allergy status to analgesic agent; Z88.5 Allergy status to narcotic agent; Z88.8 Allergy status to other drugs, medicaments and biological substances
CPT/HCPCS: 92960; J2704